=== PATIENT | male | born 1950 | race Caucasian/White ===

== ENCOUNTER 2016-06-07 09:54 | Emergency (ER) | payer OTHER ==
[~2016-06-07] VITALS: Ht 175.3 cm; Wt 88.6 kg
[~2016-06-07 09:54] MED LIST: LISI20TA PO; METF-487 PO; METF-488 PO; NAPR220T2 PO; OMEP40CA25 PO; SMV40T PO
[2016-06-07 09:57] VITALS: BP 131/87; PULSE 70; RESP 15; O2SAT 100
--- NOTE | 2016-06-07 10:55 | DRSVH ---
PROCEDURE: X-RAY CHEST, TWO VIEWS ([id number]) INDICATIONS: R/O FRACTURED RIBS TECHNIQUE: 2 views of the chest were acquired. COMPARISON: [facility], , CHEST 2VW, 10/11/2011, 13:44. FINDINGS: Surgical changes and devices: None. Lungs and pleura: No pleural effusions or pneumothorax. No acute consolidation. There are bilatera l areas of pleural thickening which appear similar to the prior study. Mediastinum: Mediastinal contours are unchanged with a moderate hiatal hernia redemonstrated. Heart size is normal. Bones and chest wall: No acute fractures of the visualized ribs. There is an old healed left rib fr acture again noted. Soft tissues appear unremarkable. IMPRESSION: 1. No definite acute rib fracture. 2. Moderate hiatal hernia again noted. Dictated by: Alber Nj M.D. on 06/07/2016 at 10:50 Approved by: Alber Nj M.D. on 06/07/2016 at 10:54
--- NOTE | 2016-06-07 11:12 | ED.REPORT ---
HPI-Trauma Multiple Date of Service Jun 07, 2016 ED Provider: Doc,Ed Dejuan is a 66-year-old male with a chief complaint of right-sided rib pain. He states the pain began approximately 3 days ago when he leaned against the fender of his truck and heard a "snap like a pencil breaking." He states that it was not particularly painful at the time but the pain has been steadily worsening since then. Denies cough, wheeze, shortness of breath, chest pain, palpitations. Nursing Notes Stated Complaint: POSS CRACKED RIBS RT SIDE Chief Complaint: Multiple Trauma/Fall Nursing Notes Reviewed: Yes Allergies: Coded Allergies: Sulfa (Sulfonamide Antibiotics) (Verified Adverse Reaction, Intermediate, Nausea, 06/23/11) Scheduled Lisinopril-Expunged Drug, Do Not Renew! (Lisinopril-Expunged Drug, Do Not Renew! ) 20 Mg Tablet 20 MG PO AM Metformin-Expunged Drug, Do Not Renew! (Metformin-Expunged Drug, Do Not Renew!) 500 Mg Tab.er.24 500 MG PO AM Metformin-Expunged Drug, Do Not Renew! (Metformin-Expunged Drug, Do Not Renew!) 1,000 Mg Tab.er.24 1,000 MG PO HS Naproxen Sodium-Expunged Drug, Do Not Renew! (Naproxen Sodium-Expunged Drug, Do Not Renew!) 220 Mg Tablet 220 MG PO QID Omeprazole-Expunged Drug, Do Not Renew! (Omeprazole-Expunged Drug, Do Not Renew! ) 40 Mg Capsule.dr 40 MG PO BID Simvastatin-Expunged Drug, Choose New Med! (Simvastatin-Expunged Drug, Choose New Med!) 40 Mg Tablet 40 MG PO HS General Time Seen by Provider: 11:11 Chief Complaint Other (rib pain right) Past Medical History Past Medical History Notes: Shoulder pain, DM 2, hypertension Review of Systems Review of Systems Note: Negative unless stated otherwise in history of present illness Physical Exam General: Well appearing, well developed, well nourished, no acute distress. Respiratory: Breath sounds present and equal bilaterally, no rales rhonchi or wheezes. Chest: Normal to inspection. Tender right anterior ribs. Head: Atraumatic, normocephalic. Eyes: No scleral icterus or injection. No discharge. Vision grossly intact. ENT: Voice clear, hearing grossly intact. Skin: Warm and dry. Neurological: Grossly nonfocal. Psychological: alert and oriented. Speech appropriate, linear and logical. Behavior appropriate. Initial Vital Signs Vital Signs (First) Date Time Temp Pulse Resp B/P Pulse Ox O2 Delivery O2 Flow Rate FiO2 06/07/16 09:57 36 70 15 131/87 100 Room Air Initial VS: Reviewed, Vital signs normal Interpretation & Diagnostics X-Ray Chest Interpretation Chest Xray Interpretation: PROCEDURE: X-RAY CHEST, TWO VIEWS ([id number]) INDICATIONS: R/O FRACTURED RIBS IMPRESSION: 1. No definite acute rib fracture. 2. Moderate hiatal hernia again noted. Interpretation / Wet Read by: Interpret - Radiologist, Interp - P Re-Eval/Medical Decision Med Decision/Clinical Course 58-year-old male with a history of hypertension and diabetes as well as shoulder pain presents with a chief complaint of right rib pain. He states the rib pain started when he leaned against the fender of his truck and hurt a snap like a pencil breaking. Pain has been worsening since then. History and physical are reassuring as unlikely to be damage to his lungs. Inspection of the chest is normal with right-sided anterior tenderness. Two-view chest x-ray reveals no pneumothorax, hemothorax, pleural effusion or displaced rib fractures. While this is not the definitive study for rib fractures I feel it is reasonable to forego further studies as is was not affect treatment. I have prescribed incentive spirometry hourly while awake until primary care follow-up in 2 weeks. The patient has a robust pain medication regimen in place which I advised him to continue. Provided return precautions, patient is comfortable with the plan. This patient departed prior to receiving written discharge instructions but I gave him all instructions verbally and he completed training with incentive spirometer. Discharge & Departure Impression: Primary Impression: Rib pain on right side Disposition: Home Discharge Condition All VS Reviewed: Yes Condition: Stable Patient Instructions: How to Use an Incentive Spirometer (ED) Additional Instructions: Evaluation in the emergency department for right rib pain. History, physical and x-ray are reassuring that there is unlikely to be any damage to your lung, likewise x-ray does not reveal a displaced rib fracture. I have given you an incentive spirometer and had you instructed in its use. I suggest you use this device every hour or so while you are awake until you have primary care follow- up.. The purpose of this is to prevent the formation of a pneumonia. I Suggest you continue your current pain medication regimen, and [facility] approximately 2 weeks. Return to emergency department for any new or worsening symptoms including increasing pain, difficulty breathing, fever. [facility] EDSupervising Provider for APC: Jean Pierre Gaitan MD Attending Statement Attending attestation: I saw this patient in conjunction with Julito Celis PA-C. I agree with the workup, evaluation, treatment and disposition. Jean Pierre Gaitan MD copies to: [facility] Jean Pierre Gaitan MD Jun 07, 2016 11:12 Julito Celis PA-C Jun 07, 2016 12:11
== END 2016-06-07 13:02 | disposition home or self-care (01) ==
LOC: SED 09:54
DX: R07.81 Pleurodynia (principal); Z88.2 Allergy status to sulfonamides